=== PATIENT | female | born 1975 | race Caucasian/White ===

== ENCOUNTER 2016-09-29 13:07 | Emergency (ER) | payer MEDICAID ==
[2016-09-29] MEDS ORDERED: NORMAL SALINE 1000 ML 1,000 ML IV ONE (13:52)
--- NOTE | 2016-09-29 13:59 | ER Document Report ---
ED General - General Mode of Arrival: Medic TRAVEL OUTSIDE OF THE U.S. IN LAST 30 DAYS: No - HPI Patient complains to provider of: Heart Racing Onset: Yesterday Onset/Duration: Intermittent, Worse Quality of pain: No pain Associated symptoms: None <BRYSON NOLASCO - Last Filed: 09/29/16 13:53> <MAURISIO MART - Last Filed: 09/29/16 15:41> - General Chief Complaint: Palpitations Stated Complaint: HEART PALPITATIONS Notes: Patient is a 41-year-old female presenting to the emergency department with concerns of intermittent heart racing episodes onset yesterday. Patient states that when the episodes occur they only last for approximately 1 minute. Patient states that today they have become more frequent to approximately 3 episodes per hour. Around 4 AM today, the patient was awakened from sleep due to her heart racing. Patient has a history of hypertension, asthma, and anxiety , and she is also a smoker. (BRYSON NOLASCO) - Related Data Allergies/Adverse Reactions: morphine [Morphine] Allergy (Intermediate, Verified 10/05/15 15:58) Hives Past Medical History - General Information source: Patient - Social History Smoking Status: Current Every Day Smoker Cigarette use (# per day): Yes - 1 ppd Family History: Reviewed & Not Pertinent, Arthritis, CVA, DM, Hypertension, Thyroid Disfunction - Past Medical History Cardiac Medical History: Reports: Hx Hypertension Pulmonary Medical History: Reports: Hx Asthma Malignancy Medical History: Reports: Hx Cervical Cancer - leep for Musculoskeltal Medical History: Reports Hx Arthritis, Reports Other - Chronic back pain treated with oxycodone Skin Medical History: Denies Hx MRSA - denies known history Psychiatric Medical History: Reports: Hx Bipolar Disorder, Hx Depression Past Surgical History: Reports: Hx Gynecologic Surgery - leep, Hx Orthopedic Surgery - Right thumb, right ankle, Other - Left eye surgery as child - Immunizations Immunizations up to date: Yes Hx Diphtheria, Pertussis, Tetanus Vaccination: Yes <BRYSON NOLASCO - Last Filed: 09/29/16 13:53> Review of Systems - Review of Systems Constitutional: No symptoms reported EENT: No symptoms reported Cardiovascular: See HPI, Heart racing Respiratory: No symptoms reported Gastrointestinal: No symptoms reported Genitourinary: No symptoms reported Female Genitourinary: No symptoms reported Musculoskeletal: No symptoms reported Skin: No symptoms reported Hematologic/Lymphatic: No symptoms reported Neurological/Psychological: No symptoms reported -: Yes All other systems reviewed and negative <BRYSON NOLASCO - Last Filed: 09/29/16 13:53> Physical Exam - Vital signs Interpretation: Normal - General General appearance: Appears well, Alert - HEENT Head: Normocephalic, Atraumatic Eyes: Normal Pupils: PERRL - Respiratory Respiratory status: No respiratory distress Chest status: Nontender Breath sounds: Rhonchi - Coarse breath sounds and rhonchi consistent with smoking cigarettes Chest palpation: Normal - Cardiovascular Rhythm: Regular Heart sounds: Normal auscultation Murmur: No - Abdominal Inspection: Normal Distension: No distension Bowel sounds: Normal Tenderness: Nontender Organomegaly: No organomegaly - Back Back: Normal, Nontender - Extremities General upper extremity: Normal inspection General lower extremity: Normal inspection - Neurological Neuro grossly intact: Yes Cognition: Normal [place] Coma Scale Eye Opening: Spontaneous [place] Coma Scale Verbal: Oriented [place] Coma Scale Motor: Obeys Commands [place] Coma Scale Total: 15 Speech: Normal - Psychological Associated symptoms: Normal affect, Normal mood - Skin Skin Temperature: Warm Skin Moisture: Dry Skin Color: Normal <BRYSON NOLASCO - Last Filed: 09/29/16 13:53> Course - Laboratory Result Diagrams: 09/29/16 13:32 09/29/16 13:32 <BRYSON NOLASCO - Last Filed: 09/29/16 13:53> - Laboratory Result Diagrams: 09/29/16 13:32 09/29/16 13:32 - Diagnostic Test Radiology reviewed: Image reviewed, Reports reviewed - Chest x-ray does not show any acute process. - EKG Interpretation by Mo EKG shows normal: Sinus rhythm, [place], Intervals, QRS Complexes, ST-T Waves Rate: Normal - 82 Rhythm: NSR <MAURISIO MART - Last Filed: 09/29/16 15:41> - Re-evaluation Re-evalutation: 09/29/16 15:05 A review of monitoring shows no tachydysrhythmias over the past hour or more. 09/29/16 15:38 Still been no tachycardia dysrhythmias noted. Urinalysis comes back suggesting a urinary tract infection. (MAURISIO MART) - Vital Signs Vital signs: Temp Pulse Resp BP Pulse Ox 98.3 F 14 114/78 96 09/29/16 14:07 09/29/16 15:00 09/29/16 14:01 09/29/16 15:00 (MAURISIO MART) - Laboratory Laboratory results interpreted by me: 09/29/16 09/29/16 13:32 14:22 Carbon Dioxide 21 L Est GFR (Non-Af Amer) 53 L Urine Protein 30 H Urine Blood LARGE H Urine Nitrite POSITIVE H Urine Urobilinogen 2.0 H Ur Leukocyte Esterase TRACE H (MAURISIO MART) Discharge <BRYSON NOLASCO - Last Filed: 09/29/16 13:53> <MAURISIO MART - Last Filed: 09/29/16 15:41> - Discharge Clinical Impression: Palpitations Urinary tract infection Qualifiers: Urinary tract infection type: site unspecified Hematuria presence: with hematuria Qualified Code(s): N39.0 - Urinary tract infection, site not specified Condition: Stable Disposition: HOME, SELF-CARE Additional Instructions: Palpitations (Irregular/Rapid Heartrate): Irregular or rapid heartbeat is called "palpitation." To diagnose the cause of palpitation, we have to "catch it in the act" with an EKG. Sinus Tachycardia: This is a rapid (but NORMAL) rhythm that can be due to fever, pain, anxiety, lack of sleep, over-exertion, or drugs. Cold medications, caffeine, and diet pills are particularly likely to cause tachycardia. Usually , all that's required is rest, reassurance, and avoiding caffeine, alcohol, nicotine, and unnecessary medicines. Paroxysmal Atrial Tachycardia (PAT): This abnormally rapid heartbeat is caused by a "short circuit" in the electrical system of the heart. It is not dangerous, unless other heart disease is present. These attacks of PAT may occur occasionally for years. Medication is available for treatment. Paroxysmal Atrial Fibrillation or Atrial Flutter: This is irregular electrical activity in the upper heart chamber. These abnormal rhythms often occur with valve disease or in hearts damaged by hardening of the arteries. These rhythms usually require further testing, for example a cardiac echo. Premature Beats: Extra beats occur more commonly after caffeine, nicotine , alcohol, cold pills, diet pills. Emotional stress or fatigue also provoke them. Extra beats are only dangerous when heart disease is present. They usually need no treatment. If they're frequent, or if evidence of heart disease develops, medication can be given to suppress them. If we were unable to "catch" the palpitations on EKG, you should try to get an EKG immediately if the symptoms begin again. Contact the physician at once if you develop persistent lightheadedness, shortness of breath, chest pain , or swelling of the ankles. Urinary Tract Infection: Your evaluation indicates that you have a urinary tract infection. This is due to germs growing in the bladder. This is a common problem. This infection usually responds quickly to antibiotics. Your antibiotic should be taken exactly as prescribed. Drink plenty of fluids -- three to four quarts a day. Certain urine infections require a culture. If the doctor obtained a culture, the results will be back in two days. You should call to see if a change in treatment is needed. A repeat urinalysis after you finish treatment is often recommended. The physician will let you know if further testing is required. Call the doctor if you develop fever, chills, flank pain, inability to urinate, or blood in the urine. TAKE THE MEDICATION PRESCRIBED TO CONTROL THE PALPITATIONS. START THE ANTIBIOTIC FOR THE URINE INFECTION. DRINK PLENTY OF FLUIDS. STOP YOUR LISINOPRIL IF YOUR BLOOD PRESSURE GOES TOO LOW. FOLLOW UP WITH YOUR DOCTOR TOMORROW FOR RECHECK AND HOLTER MONITOR IF NEEDED. Prescriptions: Metoprolol Tartrate [Lopressor 25 mg Tablet] 25 mg PO Q12 #60 tab Sulfamethoxazole/Trimethoprim [Bactrim Ds Tablet] 1 tab PO BID #10 tablet Referrals: KIERRA LYON DO [Primary Care Provider] - Follow up as needed Scribe Attestation: 09/29/16 15:41 I personally performed the services described in the documentation, reviewed and edited the documentation which was dictated to the scribe in my presence, and it accurately records my words and actions. (MAURISIO MART) Scribe Documentation <BRYSON NOLASCO - Last Filed: 09/29/16 13:53> <MAURISIO MART - Last Filed: 09/29/16 15:41> - Scribe Written by Venancio:: MAURISIO MART MD, SCRIBE 09/29/16 [id number] Acting as scribe for: Dr. Mart (BRYSON NOLASCO) (MAURISIO MART)
[2016-09-29 14:00] LABS: ABSOLUTE BASOPHILS # (AUTO) 0.1 10^3/uL (0.0-0.2); ABSOLUTE EOSINOPHILS # (AUTO) 0.1 10^3/uL (0.0-0.6); ABSOLUTE LYMPHOCYTES (AUTO) 2.1 10^3/uL (0.5-4.7); ABSOLUTE MONOCYTES (AUTO) 0.5 10^3/uL (0.1-1.4); ABSOLUTE NEUT (AUTO) 7.3 10^3/uL (1.7-8.2); BASOPHILS % (AUTO) 0.8 % (0-2); EOSINOPHILS % (AUTO) 0.5 % (0-6); HEMATOCRIT 42.8 % (36.0-47.0); HEMOGLOBIN 14.8 g/dL (12.0-15.5); HGB HCT DIFFERENCE 1.6; LYMPHOCYTES % (AUTO) 21.1 % (13-45); MEAN CORPUSCULAR HEMOGLOBIN 29.8 pg (27.0-33.4); MEAN CORPUSCULAR HGB CONC 34.6 g/dL (32.0-36.0); MEAN CORPUSCULAR VOLUME 86 fl (80-97); MONOCYTES % (AUTO) 5.1 % (3-13); RED BLOOD COUNT 4.96 10^6/uL (3.72-5.28); RED CELL DISTRIBUTION WIDTH 13.4 % (11.5-14.0); SEGMENTED NEUTROPHILS % (AUTO) 72.5 % (42-78); WHITE BLOOD COUNT 10.1 10^3/uL (4.0-10.5)
[2016-09-29 14:23] LABS: ALANINE AMINOTRANSFERASE 20 U/L (9-52); ALBUMIN 3.8 g/dL (3.5-5.0); ALKALINE PHOSPHATASE 101 U/L (38-126); ANION GAP 12 (5-19); ASPARTATE AMINO TRANSFERASE 16 U/L (14-36); BILIRUBIN,TOTAL 0.3 mg/dL (0.2-1.3); BLOOD UREA NITROGEN 17 mg/dL (7-20); CALCIUM 9.6 mg/dL (8.4-10.2); CARBON DIOXIDE 21 mmol/L (22-30); CHLORIDE 104 mmol/L (98-107); CREATINE KINASE 39 U/L (30-135); CREATININE RESULT 1.14 mg/dL (0.52-1.25); GLUCOSE 109 mg/dL (75-110); POTASSIUM 3.8 mmol/L (3.6-5.0); SODIUM 137.3 mmol/L (137-145)
[2016-09-29 14:36] LABS: CREATINE KINASE MB < 0.22 ng/mL (<4.55); TROPONIN I < 0.012 ng/mL
[2016-09-29 14:58] LABS: APPEARANCE,URINE CLOUDY; BILIRUBIN,URINE NEGATIVE (NEGATIVE); GLUCOSE, URINE NEGATIVE (NEGATIVE); KETONES,URINE NEGATIVE (NEGATIVE); LEUKOCYTE ESTERASE,URINE TRACE (NEGATIVE); NITRITE,URINE POSITIVE (NEGATIVE); PROTEIN,URINE 30 mg/dL (NEGATIVE); URINE SPECIFIC GRAVITY 1.018
[2016-09-29] MEDS ORDERED: SULFAMETHOXAZOLE/TRIMETHOPRIM 800-160 MG TABLET PO ONE (15:38)
[2016-09-29 15:55] VITALS: BP 117/84
--- NOTE | 2016-09-30 15:06 | EKG REPORT ---
SEVERITY:- NORMAL ECG - SINUS RHYTHM : Confirmed by: Christos Raygoza 30-Sep-2016 15:05:14
== END 2016-09-29 15:25 | disposition home or self-care (01) ==
LOC: ER 13:07
DX: N39.0 Urinary tract infection, site not specified (principal); R00.2 Palpitations; I10 Essential (primary) hypertension; J45.909 Unspecified asthma, uncomplicated; F41.9 Anxiety disorder, unspecified; F17.210 Nicotine dependence, cigarettes, uncomplicated
CPT/HCPCS: 93005; 99285; 96360; 36415; 87086; 82553; 82550; 83735; 85025; 87088; 80053; 81001; 84484; 87186; 71010; 93010; J7030

== ENCOUNTER 2016-11-16 11:19 | Emergency (ER) | payer MEDICAID ==
[2016-11-16 11:38] VITALS: BP 150/82
--- NOTE | 2016-11-16 11:47 | ER Document Report ---
ED Medical Screen (RME) - General Stated Complaint: TOOTH PAIN Notes: 41 yo female c/o right lower dental pain x several months. no fever. no swelling. TRAVEL OUTSIDE OF THE [place] IN LAST 30 DAYS: No - Related Data Allergies/Adverse Reactions: morphine [Morphine] Allergy (Intermediate, Verified 11/16/16 11:47) Hives Past Medical History - Past Medical History Cardiac Medical History: Reports: Hx Hypercholesterolemia, Hx Hypertension Pulmonary Medical History: Reports: Hx Asthma Malignancy Medical History: Reports: Hx Cervical Cancer - leep for Musculoskeltal Medical History: Reports Hx Arthritis Skin Medical History: Denies Hx MRSA - denies known history Psychiatric Medical History: Reports: Hx Bipolar Disorder, Hx Depression Past Surgical History: Reports: Hx Gynecologic Surgery - leep, Hx Orthopedic Surgery - Right thumb, right ankle, Other - Left eye surgery as child - Immunizations Immunizations up to date: Yes Hx Diphtheria, Pertussis, Tetanus Vaccination: Yes Physical Exam - Vital signs Vitals: Temp Pulse Resp BP Pulse Ox 98.1 F 72 20 150/82 H 99 11/16/16 11:37 11/16/16 11:37 11/16/16 11:37 11/16/16 11:37 11/16/16 11:37 Course - Vital Signs Vital signs: Temp Pulse Resp BP Pulse Ox 98.1 F 72 20 150/82 H 99 11/16/16 11:37 11/16/16 11:37 11/16/16 11:37 11/16/16 11:37 11/16/16 11:37
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
== END 2016-11-16 14:12 | disposition home or self-care (01) ==
LOC: ER 11:19
DX: K02.9 Dental caries, unspecified (principal); K08.89 Other specified disorders of teeth and supporting structures; R22.0 Localized swelling, mass and lump, head; F17.210 Nicotine dependence, cigarettes, uncomplicated
CPT/HCPCS: 99282

== ENCOUNTER 2019-06-18 09:22 | Emergency (ER) | payer MEDICAID ==
[2019-06-18 09:33] VITALS: BP 138/75
[2019-06-18] MEDS ORDERED: ACETAMINOPHEN 325 MG TABLET PO ONE (09:55)
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
== END 2019-06-18 11:58 | disposition home or self-care (01) ==
LOC: ER 09:22
DX: S80.02XA Contusion of left knee, initial encounter (principal); M25.562 Pain in left knee; V49.9XXA Car occupant (driver) (passenger) injured in unspecified traffic accident, initial encounter; M89.9 Disorder of bone, unspecified; J45.909 Unspecified asthma, uncomplicated; I10 Essential (primary) hypertension; F17.200 Nicotine dependence, unspecified, uncomplicated; Z88.5 Allergy status to narcotic agent
CPT/HCPCS: 73564; L1830; J3490; 99283

== ENCOUNTER → 2019-12-02 | Outpatient (CLI) | payer MEDICAID ==
--- NOTE | 2019-12-02 10:46 | RADIOLOGY REPORT (SQ) ---
EXAM DESCRIPTION: CHEST PA/LATERAL COMPLETED DATE/TIME: 12/02/2019 10:30 am REASON FOR STUDY: PRE OP COMPARISON: None. EXAM PARAMETERS: NUMBER OF VIEWS: two views TECHNIQUE: Digital Frontal and Lateral radiographic views of the chest acquired. RADIATION DOSE: NA LIMITATIONS: none FINDINGS: LUNGS AND PLEURA: No opacities, masses or pneumothorax. No pleural effusion. MEDIASTINUM AND HILAR STRUCTURES: No masses or contour abnormalities. HEART AND VASCULAR STRUCTURES: Heart normal size. No evidence for failure. BONES: No acute findings. HARDWARE: None in the chest. OTHER: No other significant finding. IMPRESSION: NO SIGNIFICANT RADIOGRAPHIC FINDING IN THE CHEST. TECHNICAL DOCUMENTATION: JOB ID: [id number] 2010 [employer]- All Rights Reserved Reading location - IP/workstation name: [email or web address]
[2019-12-02 10:50] LABS: HEMATOCRIT 41.5 % (36.0-47.0); HEMOGLOBIN 14.3 g/dL (12.0-15.5); MEAN CORPUSCULAR HEMOGLOBIN 30.4 pg (27.0-33.4); MEAN CORPUSCULAR HGB CONC 34.4 g/dL (32.0-36.0); MEAN CORPUSCULAR VOLUME 88 fl (80-97); PLATELET COUNT 286 10^3/uL (150-450); RED CELL DISTRIBUTION WIDTH 13.5 % (11.5-14.0); WHITE BLOOD COUNT 11.1 10^3/uL (4.0-10.5)
[2019-12-02 11:18] LABS: BLOOD UREA NITROGEN 10 mg/dL (7-20); CALCIUM 9.2 mg/dL (8.4-10.2); CARBON DIOXIDE 27 mmol/L (22-30); CHLORIDE 105 mmol/L (98-107); POTASSIUM 4.6 mmol/L (3.6-5.0)
[2019-12-02 11:56] LABS: ANION GAP 4 (5-19)
[2019-12-02 11:58] LABS: GLUCOSE 63 mg/dL (75-110)
--- NOTE | 2019-12-02 15:38 | EKG REPORT ---
SEVERITY:- BORDERLINE ECG - SINUS RHYTHM BORDERLINE R WAVE PROGRESSION, ANTERIOR LEADS BORDERLINE T ABNORMALITIES, ANTERIOR LEADS : Confirmed by: Shivani Galvan MD 02-Dec-2019 15:37:49
== END ==
LOC: OD 09:29 → EDSTATUS 01-10 13:30
PROVIDERS: ATTEND Surgery
DX: Z01.818 Encounter for other preprocedural examination (principal); L72.3 Sebaceous cyst; I10 Essential (primary) hypertension; J45.909 Unspecified asthma, uncomplicated; M19.90 Unspecified osteoarthritis, unspecified site; R52 Pain, unspecified; F98.8 Other specified behavioral and emotional disorders with onset usually occurring in childhood and adolescence; F17.200 Nicotine dependence, unspecified, uncomplicated; Z85.41 Personal history of malignant neoplasm of cervix uteri; Z87.898 Personal history of other specified conditions
CPT/HCPCS: 36415; 71046; 80048; 85027; 93005; 93010

== ENCOUNTER 2020-02-14 09:13 | Day surgery (SDC) | payer MEDICAID ==
[2020-02-07 10:34] LABS: HEMATOCRIT 40.6 % (36.0-47.0); MEAN CORPUSCULAR HEMOGLOBIN 30.3 pg (27.0-33.4); MEAN CORPUSCULAR HGB CONC 34.5 g/dL (32.0-36.0); MEAN CORPUSCULAR VOLUME 88 fl (80-97); PLATELET COUNT 264 10^3/uL (150-450); RED BLOOD COUNT 4.62 10^6/uL (3.72-5.28); RED CELL DISTRIBUTION WIDTH 13.8 % (11.5-14.0); WHITE BLOOD COUNT 11.8 10^3/uL (4.0-10.5)
[2020-02-07 11:10] LABS: ANION GAP 6 (5-19); BLOOD UREA NITROGEN 9 mg/dL (7-20); CALCIUM 9.6 mg/dL (8.4-10.2); CARBON DIOXIDE 23 mmol/L (22-30); CHLORIDE 106 mmol/L (98-107); GLUCOSE 80 mg/dL (75-110); POTASSIUM 4.7 mmol/L (3.6-5.0)
--- NOTE | 2020-02-07 11:13 | RADIOLOGY REPORT (SQ) ---
EXAM DESCRIPTION: CHEST PA/LATERAL IMAGES COMPLETED DATE/TIME: 02/07/2020 10:35 am REASON FOR STUDY: COUGH COMPARISON: 12/02/2019 EXAM PARAMETERS: NUMBER OF VIEWS: two views TECHNIQUE: Digital Frontal and Lateral radiographic views of the chest acquired. RADIATION DOSE: NA LIMITATIONS: none FINDINGS: LUNGS AND PLEURA: No opacities, masses or pneumothorax. No pleural effusion. MEDIASTINUM AND HILAR STRUCTURES: No masses or contour abnormalities. HEART AND VASCULAR STRUCTURES: Heart normal size. No evidence for failure. BONES: No acute findings. HARDWARE: None in the chest. OTHER: No other significant finding. IMPRESSION: NO SIGNIFICANT RADIOGRAPHIC FINDING IN THE CHEST. TECHNICAL DOCUMENTATION: JOB ID: [id number] 2010 [employer]- All Rights Reserved Reading location - IP/workstation name: [email or web address]
--- NOTE | 2020-02-07 18:52 | EKG REPORT ---
SEVERITY:- NORMAL ECG - SINUS RHYTHM : Confirmed by: Shivani Galvan MD 07-Feb-2020 18:51:47
[~2020-02-14 09:13] MED LIST: ACETAMINOPHEN 325 MG TABLET PO PRN; CEFAZOLIN SODIUM 2 GM in DEXTROSE 5%-WATER 100 ML IV PRN; IBUPROFEN 800 MG in NORMAL SALINE 250 ML IV PRN; LACTATED RINGERS 1000 ML IV PRN; LIDOCAINE 0.5% INJ-PF (5 MG/ML) 50 ML SDV SUBCUT PRN
[2020-02-14] MEDS ORDERED: ACETAMINOPHEN 325 MG TABLET ONE (09:54)
[2020-02-14] MEDS ORDERED: MIDAZOLAM 2 MG/2 ML INJ ONE (11:14)
[2020-02-14] MEDS ORDERED: FENTANYL CITRATE INJ/PF 100 MCG/2 ML AMPUL ONE (11:14)
[2020-02-14] MEDS ORDERED: KETAMINE HCL INJ 500 MG/10 ML VIAL ONE (11:14)
[2020-02-14] MEDS ORDERED: PROPOFOL INJ 200 MG/20 ML VIAL IV ONE (11:15)
[2020-02-14] MEDS ORDERED: LIDOCAINE 1% INJ-PF (10 MG/ML) 30 ML SDV ONE (11:20)
[2020-02-14] MEDS ORDERED: BUPIVACAINE HCL 0.25 % INJ/PF (2.5 MG/1 ML) 30 ML VIAL ONE (11:20)
[2020-02-14] MEDS ORDERED: DIPHENHYDRAMINE HCL 50 MG/ML VIAL IV PRN (11:30)
[2020-02-14] MEDS ORDERED: FENTANYL CITRATE INJ/PF 100 MCG/2 ML AMPUL IV PRN ×3 (11:30)
[2020-02-14] MEDS ORDERED: PROMETHAZINE HCL INJ 25 MG/1 ML VIAL IV PRN (11:30)
[2020-02-14] MEDS ORDERED: MEPERIDINE HCL/PF INJ 25 MG/1 ML DISP.SYRIN IV PRN (11:30)
--- NOTE | 2020-02-14 11:55 | Operative Report ---
Nonrecallable Operative Report DATE OF SURGERY: 02/14/20 PREOPERATIVE DIAGNOSIS: 2 cm inflamed, infected sebaceous cyst of the face POSTOPERATIVE DIAGNOSIS: Same as above OPERATION: 1. Excision of 2 cm inflamed sebaceous cyst of the face. 2. Intermediate closure of 2 cm face incision SURGEON: VALENTINA RANGEL 1ST FLOAT NURSE: MARCE MCLEOD ANESTHESIA: LMAC TISSUE REMOVED OR ALTERED: 2 cm sebaceous cyst COMPLICATIONS: None apparent ESTIMATED BLOOD LOSS: Minimal PROCEDURE: Drain/implants: None. Procedure in detail: After informed consent was obtained, the patient was brought to the operating room and laid the supine position. The area of the left inferior face was prepped and draped in a normal sterile fashion. Quarter percent Marcaine was used to infiltrate the skin of the left inferior face. A 2 cm incision was then created over the cystic lesion. The cyst and its contents were removed using sharp dissection. The cyst was removed from the patient, and passed off the field. Next, hemostasis was achieved. The subcutaneous tissues were closed using 3-0 Vicryl suture in simple interrupted fashion. The overlying skin was closed using 4-0 Vicryl Rapide suture in subcuticular fashion. A dressing was placed, and the procedure was concluded. All sponge, instrument, needle counts were correct x2. Condition: Stable. Marce Mcleod PA-C was scrubbed and present the entirety of the procedure. She assisted with all portions of the procedure including opening of the skin, dissection of the cyst, closure of the subcutaneous tissues, and closure of the skin.
[2020-02-14] MEDS ORDERED: OXYCODONE-ACETAMINOPHEN 5-325 MG TABLET PO PRN (12:03)
--- NOTE | 2020-02-14 12:03 | Discharge Summary ---
Discharge Summary (SDC) - Discharge Final Diagnosis: inflammed/infected sebaceous cyst of the face Date of Surgery: 02/14/20 Discharge Date: 02/14/20 Condition: Stable Treatment or Instructions: Discharge home. Diet as tolerated. Activity: No strenuous activity. Follow-up with [facility] in 7 to 10 days. Okay to shower starting Monday. Do not submerge incision underneath the bathtub or pool for 2 weeks. Resume home Percocet prescription, as previously prescribed. Referrals: TENA EDWARDS PA-C [Primary Care Provider] - Discharge Diet: As Tolerated Respiratory Treatments at Home: Deep Breathing/Coughing Discharge Activity: Balance Activity w/Rest Home Care Assistance: None Needed Report the Following to Your Physician Immediately: Shortness of Breath, Nausea, Vomiting, Increase in Pain, Fever over 101 Degrees, Unusual Bleeding, Redness, S welling, Warmth
[2020-02-14 14:46] VITALS: BP 171/78
== END 2020-02-14 13:40 | disposition home or self-care (01) ==
LOC: OROUT 09:13
PROVIDERS: ATTEND Surgery
DX: L72.3 Sebaceous cyst (principal); I10 Essential (primary) hypertension; Z85.41 Personal history of malignant neoplasm of cervix uteri; F17.210 Nicotine dependence, cigarettes, uncomplicated; Z79.899 Other long term (current) drug therapy; J44.9 Chronic obstructive pulmonary disease, unspecified; Z88.5 Allergy status to narcotic agent
CPT/HCPCS: 36415 ×2; 93005; 84132; 85027; 87635; 81025; 80048; 71046; 93010; 00300; 11442; 12051; J3490 ×4; J2250; J0690; J3010; J7060; J7050; J2704; J1741; 300